=== PATIENT | female | born 1960 | race Caucasian/White ===

== ENCOUNTER 2016-06-24 12:04 | Emergency (ER) | payer OTHER, MEDICARE ==
[~2016-06-24] VITALS: Ht 149.9 cm; Wt 65.8 kg
[~2016-06-24 12:04] MED LIST: ALEVE220 MG PO; ALPRAZOLAM1 M2 PO; AMOXICILLIN500 M3 PO; AUGMENTIN 875875 MG PO; BACTRIM DS TAB1 EACH PO; DICLOFENAC SODI75 M2 PO; ESCITALOPRAM OX20 MG PO; MAGNESIUM500 M2 PO; ORPHENADRINE C100 MG PO; PERCOCET 325 MG1 TA2 PO; PERCOCET 5-3251 EACH PO; ROZEREM8 M1 PO; TRAMADOL50 MG PO
--- NOTE | 2016-06-24 12:49 | ED CARDIAC/CP/PALPITATIONS ---
History of Present Illness General Chief Complaint: General Adult Stated Complaint: L SIDE RIB PAIN Source: patient, old records Exam Limitations: no limitations Vital Signs & Intake/Output Vital Signs & Intake/Output Vital Signs Date Time Temp Pulse Resp B/P B/P Pulse O2 O2 Flow FiO2 Mean Ox Delivery Rate 06/24 1216 99.4 80 20 120/83 96 Room Air Allergies Coded Allergies: pregabalin (From [facility]) (HIVES 12/25/15) Reconcile Medications Alprazolam 1 MG TABLET 1 TAB PO TID PRN ANXIETY (Reported) Diclofenac Sodium 75 MG TABLET.DR 1 TAB PO BID PRN PAIN Diclofenac Sodium 75 MG TABLET.DR 1 TAB PO BID PRN pain and swelling Escitalopram Oxalate 20 MG TABLET 1 TAB PO DAILY PTSD/DEPRESSION (Reported) Magnesium Oxide (Magnesium) (Unknown Strength) CAPSULE (Unknown Dose) PO DAILY SUPPLEMENT (Reported) Orphenadrine Citrate 100 MG TABLET.ER 1 TAB PO BIDP PRN MUSCLE SPASMS Oxycodone HCl/Acetaminophen (Percocet 5-325 MG Tablet) 5 MG-325 MG TABLET 1 TAB PO Q6H PRN PAIN Ramelteon (Rozerem) 8 MG TABLET 1 TAB PO QHS PRN SLEEP (Reported) Triage Note: PT C/O LEFT RIB PAIN SINCE LAST WEEK WHEN SHE WAS INJURED LEANING OVER A RAIL. PT STATES SHE HAS BEEN SOB EVER SINCE Triage Nurses Notes Reviewed? yes Onset: Last week Duration: day(s):, constant, continues in ED Timing: recent history Quality/Severity: moderate, severe, sharp, stabbing Location: left lower chest wall Radiation: no radiation Activities at Onset: activity Prior Chest Pain/Card Workup: no prior cardiac workup Modifying Factors: Worsens With: breathing, coughing, movement, palpation. 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 She leaned over the side rail to hold her down her wrist and felt a sharp pain to her left lower chest that has increased in severity worsened with movement turning bending deep breath cough and palpation. She denies fever, chills, nausea, vomiting, diarrhea, abdominal pain, shortness of breath, dyruria, rash, headache bleeding. Past History Travel History Traveled to [place] past 21 day No Medical History Any Pertinent Medical History? see below for history Neurological: NONE EENT: NONE Cardiovascular: NONE Respiratory: NONE Gastrointestinal: NONE Hepatic: NONE Renal: NONE Musculoskeletal: NONE Psychiatric: anxiety, depression Endocrine: NONE Blood Disorders: NONE Cancer(s): NONE RADIO MAINTAINER/Reproductive: NONE Surgical History Surgical History: non-contributory Psychosocial History What is your primary language Amharic Tobacco Use: Current Daily Use Daily Tobacco Use Amount/Type: => 5 Cigarettes daily ETOH Use: denies use Illicit Drug Use: denies illicit drug use Family History Hx Contributory? No Review of Systems Review of Systems Constitutional: Reports: no symptoms. EENTM: Reports: no symptoms. Respiratory: Reports: no symptoms. Cardiovascular: Reports: see HPI, chest pain. GI: Reports: no symptoms. Genitourinary: Reports: no symptoms. Musculoskeletal: Reports: no symptoms. Skin: Reports: no symptoms. Neurological/Psychological: Reports: no symptoms. Hematologic/Endocrine: Reports: no symptoms. Immunologic/Allergic: Reports: no symptoms. All Other Systems: Reviewed and Negative Physical Exam Physical Exam General Appearance: well developed/nourished, alert, awake, anxious, moderate distress, obese Head: atraumatic, normal appearance Eyes: Bilateral: normal appearance, PERRL, EOMI. Ears, Nose, Throat: normal pharynx, normal ENT inspection Neck: normal inspection, supple, full range of motion, no midline tenderness Respiratory: normal breath sounds, no respiratory distress, quiet respiration, lungs clear, lower lateral left chest wall tenderness without crepitus or stepoff Cardiovascular: regular rate/rhythm, normal peripheral pulses, norml femoral pulses equa Peripheral Pulses: 4+ carotid (R), 4+ carotid (L) Gastrointestinal: normal bowel sounds, soft, non-tender, no organomegaly Back: normal inspection, normal range of motion Extremities: normal inspection, normal capillary refill, normal range of motion, no edema Neurologic/Psych: no motor/sensory deficits, awake, alert, oriented x 3, normal gait, normal mood/affect, expediter service order II-XII nml as tested Reflexes: 2+: bicep (R), bicep (L). Skin: intact, normal color, warm/dry Lymphatic: no anterior cervical rochelle Core Measures ACS in differential dx? No Severe Sepsis Present: No Septic Shock Present: No Progress Differential Diagnosis: costochondritis, pneumonia, rib fracture Plan of Care: Orders Procedure Date/time Status XRY-RIBS UNILATERAL-LEFT 06/24 1217 Active Diagnostic Imaging: Viewed by Me: Radiology Read. Discussed w/RAD: Radiology Read. Radiology Impression: no acute abnormality, no fracture, no dislocation Initial ED EKG: none Departure Departure Time of Disposition: 1343 Disposition: HOME OR SELF CARE Condition: Stable Clinical Impression Primary Impression: Contusion of rib on left side Qualifiers: Encounter type: initial encounter Qualified Code: S20.212A - Contusion of left front wall of thorax, initial encounter Referrals: BALAJI ECHOLS,ESTEFANI Departure Forms: Customer Survey General Discharge Information Prescriptions: Current Visit Scripts Oxycodone HCl/Acetaminophen (Percocet 5-325 MG Tablet) 1 TAB PO 4 TIMES/DAY PRN severe pain #20 TAB Ibuprofen 1 TAB PO Q6PRN PRN pain #50 TAB with food Critical Care Note Critical Care Note Critical Care Time: non-applicable
--- NOTE | 2016-06-24 13:32 | RADIOLOGY REPORT ---
EXAMINATION: XR RIBS, LEFT CLINICAL INFORMATION: Trauma. Evaluate for rib fracture. COMPARISON: Lumbosacral spine radiographs of 12/25/2015 TECHNIQUE: Left ribs with chest, 4 views FINDINGS: Lungs are well expanded. This no acute pulmonary consolidation, pneumothorax or pleural effusion. There is linear opacity of discoid atelectasis in the right lung base and left lateral lung base. No acute, displaced rib fractures are identified. The visualized T12-L2 fusion hardware is in stable position compared to 12/25/2015. IMPRESSION: No evidence of rib fracture.
[2016-06-24] MEDS ORDERED: PERCOCET 5-3251 EACH PO (13:45)
[2016-06-24] MEDS ORDERED: IBUPROFEN600 M1 PO (13:45)
[2016-06-24 13:55] VITALS: BP 124/80
== END 2016-06-24 13:57 ==
LOC: ERH 12:04
DX: S20.212A Contusion of left front wall of thorax, initial encounter (principal); X58.XXXA Exposure to other specified factors, initial encounter; Y92.9 Unspecified place or not applicable; Y93.9 Activity, unspecified
CPT/HCPCS: 71100-LT